=== PATIENT | male | born 1995 | race Caucasian/White ===

== ENCOUNTER → 2017-10-08 | Outpatient (CLI) | payer OTHER | LOC: FIMAGING 12:54 | PROVIDERS: ATTEND Internal Medicine Cardiovascular Disease | DX: R07.9 Chest pain, unspecified (principal); R06.02 Shortness of breath ==

== ENCOUNTER → 2019-02-11 | Outpatient (CLI) | payer OTHER | LOC: FIMAGING 07:27 | PROVIDERS: ATTEND Family Medicine | DX: K76.9 Liver disease, unspecified (principal) ==